=== PATIENT | male | born 1955 | race Caucasian/White ===

== ENCOUNTER 2022-08-01 06:19 | Day surgery (SDC) | payer BC, MEDICARE ==
[~2022-08-01] VITALS: Ht 185.4 cm; Wt 114.8 kg
[2022-08-01 07:06] VITALS: BP 139/83; PULSE 73; TEMP 97.7
[2022-08-01 08:25] VITALS: BP 125/78; PULSE 77; TEMP 97.9
[2022-08-01 08:30] VITALS: BP 114/75; PULSE 79
[2022-08-01 08:45] VITALS: BP 131/80; PULSE 68
--- NOTE | 2022-08-01 08:55 | NUR ---
0825- PATIENT RETURNS TO [facility] VIA CART. PT AWAKE AND ALERT. RESPIRATIONS UNLABORED. AMBULATED TO RECLINER CHAIR WITH 2:1 SBA. PT DENIES NAUSEA OR ABDOMINAL PAIN. HOOKED UP TO MONITOR AND VS OBTAINED. CALL LIGHT AT SIDE AND PRESENT. 0828- PATIENT TOLERATING JUICE AND MUFFIN WITHOUT NAUSEA. 0838- D/C INSTRUCTIONS REVIEWED WITH PATIENT. PT VERBALIZED UNDERSTANDING AND A COPY OF INSTRUCTIONS PROVIDED IN D/C FOLDER. 0840- DR. DONOHUE IN ROOM SPEAKING WITH PATIENT. 0846- PATIENT DRESSES SELF. 0855- PATIENT DISCHARGED FROM UNIT VIA W/C TO A PERSONAL VEHICLE. PT LEFT HOSPITAL IN STABLE CONDITION.
== END 2022-08-01 08:55 | disposition home or self-care (01) ==
LOC: SDCO 06:19
DX: Z12.11 Encounter for screening for malignant neoplasm of colon (principal); G47.33 Obstructive sleep apnea (adult) (pediatric); Z80.0 Family history of malignant neoplasm of digestive organs
CPT/HCPCS: J2704; J7120